=== PATIENT | male | born 1980 | race African-American/Black ===

== ENCOUNTER 2017-11-10 11:29 | Emergency (ER) | payer MEDICAID, OTHER ==
[2017-11-10] MEDS: NORCO, ANEXSIA 5/325MG TABLET (HYDROcodone/ACETAMINOPHEN) PO ×2 (12:45)
== END 2017-11-10 13:42 | disposition home or self-care (01) ==
LOC: M ED 11:29
DX: S93.601A Unspecified sprain of right foot, initial encounter (principal); X58.XXXA Exposure to other specified factors, initial encounter; Y92.89 Other specified places as the place of occurrence of the external cause
CPT/HCPCS: 73630

== ENCOUNTER 2018-11-25 22:20 | Emergency (ER) | payer MEDICAID, SELFPAY ==
[~2018-11-25] VITALS: Ht 162.6 cm; Wt 81.8 kg
[~2018-11-25 22:20] MED LIST: IBUP-1022 PO
[2018-11-25] MEDS ORDERED: KETOROLAC 60 MG/2 ML VIAL (J1885) IM ONE (23:30)
[2018-11-25] MEDS ORDERED: IBUP-1022 PO (23:40)
[2018-11-25 23:46] VITALS: BP 139/83
--- NOTE | 2018-11-26 11:02 | REP ---
RIGHT KNEE, FIVE VIEWS: There is no evidence of an acute fracture, dislocation or intrinsic bone disease. IMPRESSION: No fracture or dislocation. Electronically Signed by Micah Gerber MD 11/26/2018 05:44 P
== END 2018-11-26 00:06 | disposition home or self-care (01) ==
LOC: M ED 22:20
DX: S83.91XA Sprain of unspecified site of right knee, initial encounter (principal); X58.XXXA Exposure to other specified factors, initial encounter; Y92.89 Other specified places as the place of occurrence of the external cause
CPT/HCPCS: 73564; 76882; 96372; 99284; J1885

== ENCOUNTER 2020-02-28 07:04 | Emergency (ER) | payer SELFPAY ==
[~2020-02-28] VITALS: Ht 167.6 cm; Wt 98.5 kg
[2020-02-28] MEDS ORDERED: ACETAMINOPHEN 500 MG TAB PO ONE (07:45)
[2020-02-28] MEDS ORDERED: NS 500 ML IV ONE (08:00)
[2020-02-28 08:13] LABS: APPEARANCE, URINE CLEAR (CLEAR); BACTERIA, URINE AUTO NEGATIVE (NEGATIVE); BASO % 0.3 % (0.0-1.0); BILIRUBIN, URINE AUTO NEGATIVE (NEGATIVE); BLOOD, URINE BLOOD NEGATIVE (NEGATIVE); COLOR, URINE STRAW (YELLOW); EOS # 0.2 10^3/uL (0.0-0.5); EOS % 2.5 % (0.0-3.0); GLUCOSE, URINE (UA) AUTO NEGATIVE (NEGATIVE); HEMATOCRIT 40.5 % (42.0-52.0); HEMOGLOBIN 13.8 g/dl (13.5-17.5); KETONE, URINE AUTO NEGATIVE (NEGATIVE); LEUKOCYTE ESTERASE, URINE AUTO 2+ (NEGATIVE); LYMPH # 3.6 10^3/uL (1.5-5.0); LYMPH % 37.5 % (24.0-44.0); MEAN CORPUSCULAR HEMOGLOBIN 29.1 pg (27.0-33.0); MEAN CORPUSCULAR HGB CONC 34.1 g/dl (32.0-36.5); MEAN CORPUSCULAR VOLUME 85.4 fl (80.0-96.0); MONO # 0.8 10^3/uL (0.0-0.8); MONO % 8.7 % (0.0-5.0); MUCUS, URINE SMALL (NEGATIVE); NEUTROPHILS # 4.9 10^3/uL (1.5-8.5); NEUTROPHILS % 50.6 % (36.0-66.0); NITRITE, URINE AUTO NEGATIVE (NEGATIVE); PLATELET COUNT, AUTOMATED 274 10^3/uL (150-450); PROTEIN, URINE AUTO NEGATIVE (NEGATIVE); RBC, URINE AUTO 3 /HPF (0-3); RED BLOOD COUNT 4.74 10^6/uL (4.30-6.10); SPECIFIC GRAVITY URINE AUTO 1.011 (1.002-1.035); SQUAMOUS EPITHELIAL CELL UR AU 1 /HPF (0-6); UROBILINOGEN, URINE AUTO 0.2 mg/dL (0.0-2.0); WBC, URINE AUTO 30 /HPF (0-3); WHITE BLOOD COUNT 9.7 10^3/uL (4.0-10.0)
[2020-02-28 08:30] LABS: ERYTHROCYTE SEDIMENTATION RATE 7 mm/hr (0-15)
[2020-02-28 08:45] LABS: ALBUMIN 3.8 GM/DL (3.2-5.2); ALT/SGPT 38 U/L (12-78); BILIRUBIN,DIRECT < 0.1 MG/DL (0.0-0.2); BILIRUBIN,TOTAL 0.2 MG/DL (0.2-1.0); BLOOD UREA NITROGEN 16 MG/DL (7-18); CALCIUM LEVEL 8.8 MG/DL (8.5-10.1); CARBON DIOXIDE LEVEL 28 MEQ/L (21-32); CHLORIDE LEVEL 105 MEQ/L (98-107); CK-MB VALUE MASS < 1.0 NG/ML (<3.6); CPK CREATINE PHOSPHOKINASE 153 U/L (39-308); CREATININE FOR GFR 0.92 MG/DL (0.70-1.30); GLOMERULAR FILTRATION RATE > 60.0 (>60); GLUCOSE, FASTING 90 MG/DL (70-100); MB/CK RELATIVE INDEX 0.65 (< OR =4); POTASSIUM SERUM 4.3 MEQ/L (3.5-5.1); SODIUM LEVEL 139 MEQ/L (136-145); TOTAL PROTEIN 7.6 GM/DL (6.4-8.2); TROPONIN I < 0.02 NG/ML (< 0.10)
[2020-02-28] MEDS ORDERED: dexameTHASONE 4 MG/ML 1ML VIAL (J1100 PER 1MG) IV ONE (09:00)
[2020-02-28] MEDS ORDERED: AUGM875T28 PO (10:05)
[2020-02-28 10:28] VITALS: BP 145/96
[2020-02-28 11:14] LABS: CHLAMYDIA DNA AMPLIFICATION NEGATIVE (NEGATIVE); GC DNA AMPLIFICATION POSITIVE (NEGATIVE)
--- NOTE | 2020-02-28 21:17 | ECGEPIP ---
[facility] - ED Test Date: 2020-02-28 Pat Name: JESSICA ALDRIDGE Department: Room: - Gender: Male Keno Writer: : 1980 Requested By: ZAYNAB Guzman PA-C Order Number: [id number] Reading MD: Clyde Austin Measurements Intervals [place] Rate: 70 P: 37 MA: 182 QRS: 1 QRSD: 81 T: 29 QT: 356 QTc: 384 Interpretive Statements SINUS RHYTHM INCOMPLETE RIGHT BUNDLE BRANCH BLOCK NONSPECIFIC T-WAVE ABNORMALITY NO PRIORS FOR COMPARISON Electronically Signed on 02-28-2020 21:17:38 EDT by Clyde Austin
== END 2020-02-28 10:30 | disposition home or self-care (01) ==
LOC: M ED 07:04
DX: R51 Headache (principal); R03.0 Elevated blood-pressure reading, without diagnosis of hypertension; K02.9 Dental caries, unspecified; F17.200 Nicotine dependence, unspecified, uncomplicated
CPT/HCPCS: 80048; 80076; 81001; 82550; 82553; 84484; 85025; 85652; 86140; 87086; 87661; 93005; 93041; 96361; 96374; 99284; J1100

== ENCOUNTER 2020-03-05 15:02 | Emergency (ER) | payer OTHER, SELFPAY ==
[~2020-03-05] VITALS: Ht 167.6 cm; Wt 98.2 kg
[~2020-03-05 15:02] MED LIST changes: +AUGM875T28 PO
[2020-03-05] MEDS ORDERED: AZITHROMYCIN 250MG TABLET PO ONE (15:45)
[2020-03-05] MEDS ORDERED: LIDOCAINE 1% SDV 5ML VIAL DILUENT ONE (15:45)
[2020-03-05] MEDS ORDERED: cefTRIAXone SOD 250MG VIAL (J0696 PER 250MG) IM ONE (15:45)
[2020-03-05 16:33] VITALS: BP 156/92
== END 2020-03-05 16:35 | disposition home or self-care (01) ==
LOC: M ED 15:02
DX: Z20.2 Contact with and (suspected) exposure to infections with a predominantly sexual mode of transmission (principal)
CPT/HCPCS: 96372; 99283; J0696

== ENCOUNTER → 2021-12-04 | Outpatient (REF) | payer SELFPAY ==
[2021-12-04 11:21] LABS: APPEARANCE, URINE CLEAR (CLEAR); BACTERIA, URINE AUTO 1+ (NEGATIVE); BILIRUBIN, URINE AUTO NEGATIVE (NEGATIVE); BLOOD, URINE BLOOD NEGATIVE (NEGATIVE); COLOR, URINE YELLOW (YELLOW); GLUCOSE, URINE (UA) AUTO NEGATIVE (NEGATIVE); KETONE, URINE AUTO NEGATIVE (NEGATIVE); LEUKOCYTE ESTERASE, URINE AUTO 2+ (NEGATIVE); MUCUS, URINE SMALL (NEGATIVE); NITRITE, URINE AUTO NEGATIVE (NEGATIVE); PROTEIN, URINE AUTO NEGATIVE (NEGATIVE); RBC, URINE AUTO 1 /HPF (0-3); SPECIFIC GRAVITY URINE AUTO 1.011 (1.002-1.035); SQUAMOUS EPITHELIAL CELL UR AU 1 /HPF (0-6); UROBILINOGEN, URINE AUTO 0.2 mg/dL (0.0-2.0); WBC, URINE AUTO 31 /HPF (0-3)
== END ==
LOC: M LAB REF 10:25
PROVIDERS: ATTEND Physician Assistant Medical
DX: N39.0 Urinary tract infection, site not specified (principal)

== ENCOUNTER 2022-05-04 19:19 | Emergency (ER) | payer OTHER, SELFPAY ==
[~2022-05-04] VITALS: Ht 167.6 cm; Wt 90.9 kg
[2022-05-05] MEDS ORDERED: BOOSTRIX/ADACEL VACCINE (DIPHTH/PERTUSS/ACELL/TETANUS) 0.5ML SYR IM ONE (00:55)
[2022-05-05] MEDS ORDERED: DERMABOND TOPICAL SKIN ADHESIVE TOP ONE (00:55)
[2022-05-05 01:20] VITALS: BP 173/106
== END 2022-05-05 01:34 | disposition home or self-care (01) ==
LOC: M ED 19:19
DX: S61.512A Laceration without foreign body of left wrist, initial encounter (principal); W26.0XXA Contact with knife, initial encounter; Y92.9 Unspecified place or not applicable; Y93.9 Activity, unspecified; Y99.0 Civilian activity done for income or pay